=== PATIENT | male | born 1945 | race Caucasian/White ===

== ENCOUNTER → 2018-07-21 | Outpatient (CLI) | payer MEDICARE, OTHER ==
[2018-07-21 14:02] LABS: Source, Urine Voided
[2018-07-21 14:17] LABS: Bilirubin, Urine Neg (Neg); Blood, Urine Neg (Neg); Glucose Qualitative, Urine 4+ (Neg); Ketones, Urine 3+ (Neg); Leukocyte Esterase, Urine Neg (Neg); Nitrite, Urine Neg (Neg); Protein, Urine 2+ (Neg); Urobilinogen, Urine NORM (Normal)
[2018-07-21 14:32] LABS: Appearance, Urine Clear (Clear); Color, Urine Yellow (P-Yellow)
[2018-07-21 14:33] LABS: White Blood Cells, Urine 25-50 /hpf (0-5)
[2018-07-21 14:34] LABS: Bacteria Many /hpf; Red Blood Cells, Urine Not Seen /hpf (0-2); Squamous Epithelial Cells Not Seen /hpf (Few)
== END | disposition home or self-care (01) ==
LOC: LAB 14:00 → LAB SHORT 14:00
PROVIDERS: Nurse Practitioner Family
DX: N39.0 Urinary tract infection, site not specified (principal)
CPT/HCPCS: 81001; 87077; 87086; 87186

== ENCOUNTER → 2018-08-03 | Outpatient (CLI) | payer MEDICARE, OTHER ==
[2018-08-03 11:45] LABS: Source, Urine Clean Catch
[2018-08-03 11:54] LABS: Appearance, Urine Clear (Clear); Blood, Urine 1+ (Neg); Color, Urine Yellow (P-Yellow); Glucose Qualitative, Urine Neg (Neg); Ketones, Urine 1+ (Neg); Leukocyte Esterase, Urine 1+ (Neg); Nitrite, Urine Neg (Neg); Protein, Urine 2+ (Neg); Specific Gravity, Urine 1.025 (1.003-1.022); Urobilinogen, Urine NORM (Normal)
[2018-08-03 12:19] LABS: Bilirubin, Urine 1+ (Neg)
[2018-08-03 12:20] LABS: Bacteria Few /hpf; Red Blood Cells, Urine 0-2 /hpf (0-2); Squamous Epithelial Cells Few /hpf (Few); White Blood Cells, Urine 0-2 /hpf (0-5)
[2018-08-03 12:21] LABS: Calcium Oxalate Crystals Mod /hpf; Mucus Mod (0-Heavy)
== END | disposition home or self-care (01) ==
LOC: LAB 11:43 → LAB SHORT 11:43
PROVIDERS: Nurse Practitioner Family
DX: N39.0 Urinary tract infection, site not specified (principal)
CPT/HCPCS: 81001; 87086

== ENCOUNTER → 2018-08-20 | Outpatient (CLI) | payer MEDICARE, OTHER ==
[2018-08-20 13:02] LABS: Bilirubin, Urine Neg (Neg); Blood, Urine Neg (Neg); Glucose Qualitative, Urine Neg (Neg); Ketones, Urine 1+ (Neg); Leukocyte Esterase, Urine 1+ (Neg); Nitrite, Urine Neg (Neg); Protein, Urine 1+ (Neg); Urobilinogen, Urine NORM (Normal)
[2018-08-20 13:19] LABS: Appearance, Urine Clear (Clear); Color, Urine Yellow (P-Yellow)
[2018-08-20 13:22] LABS: Bacteria Not Seen /hpf; Calcium Oxalate Crystals Rare /hpf; Mucus Mod (0-Heavy); Red Blood Cells, Urine Not Seen /hpf (0-2); Squamous Epithelial Cells Rare /hpf (Few)
== END | disposition home or self-care (01) ==
LOC: LAB 12:31 → LAB SHORT 12:31
PROVIDERS: Nurse Practitioner Family
DX: N39.0 Urinary tract infection, site not specified (principal)
CPT/HCPCS: 81001; 87086

== ENCOUNTER → 2018-09-14 | Outpatient (CLI) | payer MEDICARE, OTHER ==
[2018-09-14 15:02] LABS: Bilirubin, Urine Neg (Neg); Blood, Urine Neg (Neg); Glucose Qualitative, Urine Neg (Neg); Ketones, Urine 1+ (Neg); Leukocyte Esterase, Urine 2+ (Neg); Nitrite, Urine Pos (Neg); Protein, Urine 1+ (Neg); Urobilinogen, Urine NORM (Normal)
[2018-09-14 15:26] LABS: Appearance, Urine Hazy (Clear); Color, Urine Yellow (P-Yellow)
[2018-09-14 15:28] LABS: Red Blood Cells, Urine Rare /hpf (0-2); Squamous Epithelial Cells Few /hpf (Few)
[2018-09-14 15:29] LABS: Amorphous Light (0-Heavy); Bacteria Rare /hpf; Calcium Oxalate Crystals Rare /hpf; Mucus Light (0-Heavy)
== END | disposition home or self-care (01) ==
LOC: LAB 14:07 → LAB SHORT 14:07
PROVIDERS: Nurse Practitioner Family
DX: N39.0 Urinary tract infection, site not specified (principal)
CPT/HCPCS: 81001; 87086

== ENCOUNTER → 2019-03-14 | Outpatient (CLI) | payer MEDICARE, OTHER ==
[2019-03-15 11:17] LABS: Source, Urine Clean Catch
[2019-03-15 11:38] LABS: Bilirubin, Urine Neg (Neg); Blood, Urine Neg (Neg); Glucose Qualitative, Urine Neg (Neg); Ketones, Urine Neg (Neg); Leukocyte Esterase, Urine Neg (Neg); Nitrite, Urine Neg (Neg); Protein, Urine Neg (Neg); Urobilinogen, Urine NORM (Normal); pH, Urine 6.5 (5.0-8.0)
[2019-03-15 11:51] LABS: Appearance, Urine Clear (Clear); Color, Urine Yellow (P-Yellow)
== END | disposition home or self-care (01) ==
LOC: LAB 19:30 → LAB SHORT 19:30
PROVIDERS: Nurse Practitioner Family
DX: N39.0 Urinary tract infection, site not specified (principal)
CPT/HCPCS: 81003

== ENCOUNTER → 2019-04-08 | Outpatient (CLI) | payer MEDICARE, OTHER ==
[2019-04-09 12:00] LABS: Source, Urine Clean Catch
[2019-04-09 15:31] LABS: Appearance, Urine Clear (Clear); Bilirubin, Urine Neg (Neg); Blood, Urine Neg (Neg); Color, Urine Yellow (P-Yellow); Glucose Qualitative, Urine Neg (Neg); Ketones, Urine Neg (Neg); Leukocyte Esterase, Urine Neg (Neg); Nitrite, Urine Neg (Neg); Protein, Urine Neg (Neg); Specific Gravity, Urine 1.015 (1.003-1.022); Urobilinogen, Urine NORM (Normal)
== END | disposition home or self-care (01) ==
LOC: OLS 21:00 → LAB SHORT 21:00
PROVIDERS: Nurse Practitioner Family
DX: N39.0 Urinary tract infection, site not specified (principal)
CPT/HCPCS: 81003

== ENCOUNTER 2020-12-30 06:51 | Inpatient (IN) | payer MEDICARE, OTHER ==
[~2020-12-30] VITALS: Ht 188 cm; Wt 81.7 kg
[2020-12-30 09:31] LABS: BASOPHILS ABSOLUTE AUTO 0.05 K/mm3 (0.00-0.23); BASOPHILS PERCENT AUTO 1 % (0-2); EOSINOPHILS PERCENT AUTO 1 % (0-6); Hematocrit 40.6 % (37.0-53.0); Hemoglobin 13.7 g/dL (13.5-17.5); IMMATURE GRAN ABSOLUTE AUTO 0.04 K/mm3 (0.00-0.10); IMMATURE GRAN PERCENT AUTO 0 % (0-1); LYMPHOCYTES ABSOLUTE AUTO 1.73 K/mm3 (0.84-5.20); LYMPHOCYTES PERCENT AUTO 16 % (21-46); MONOCYTES ABSOLUTE AUTO 0.66 K/mm3 (0.16-1.47); MONOCYTES PERCENT AUTO 6 % (4-13); Mean Corpuscular HGB 30.8 pg (26.0-34.0); Mean Corpuscular HGB Conc 33.7 g/dL (31.5-36.5); Mean Corpuscular Volume 91 fL (80-100); Mean Platelet Volume 10.1 fL (9.1-12.4); NEUTROPHILS ABSOLUTE AUTO 8.49 K/mm3 (1.96-9.15); NEUTROPHILS PERCENT AUTO 77 % (41-73); Platelet Count 219 K/mm3 (150-400); RDW Coefficient Variation 12.9 % (11.7-14.2); RDW Standard Deviation 42.5 fL (35.1-46.3); Red Blood Cell Count 4.45 M/mm3 (4.30-5.90); White Blood Cell Count 11.07 K/mm3 (4.00-11.30)
[2020-12-30 09:47] LABS: International Normalized Ratio 1.03; Prothrombin Time Results 11.1 Sec (9.7-11.5)
[2020-12-30 09:50] LABS: Alanine Aminotransfer (ALT/SGP 11 U/L (12-78); Albumin, Blood 3.4 g/dL (3.4-5.0); Alk Phos 88 U/L (50-136); Anion Gap 3 mmol/L (6-16); Aspartate Aminotrans (AST/SGOT 29 U/L (12-37); Bilirubin, Total 0.6 mg/dL (0.1-1.0); Blood Urea Nitrogen 24 mg/dL (8-24); Bun/Creatinine Ratio 21.1 (12.0-20.0); CO2, Blood 28 mmol/L (21-32); Calcium, Blood 8.8 mg/dL (8.5-10.1); Chloride, Blood 110 mmol/L (98-108); Creatinine, Blood 1.14 mg/dL (0.60-1.20); Globulin, Blood 3.4 g/dL (2.2-4.0); Glomerular Filtration Rate >60 (60-); Glucose, Blood 83 mg/dL (70-99); Potassium, Blood 4.3 mmol/L (3.5-5.5); Sodium, Blood 141 mmol/L (136-145); Total Protein, Blood 6.8 g/dL (6.4-8.2)
[2020-12-30 09:59] LABS: SARS-Cov-2 (COVID-19) PCR, MMC NEGATIVE (NEGATIVE)
--- NOTE | 2020-12-30 10:22 | NUR ---
PT ARRIVED TO THE ROOM AT APPROXIMATELY 1010. PT IS ALERT AND ORIENTED X 2-3. HE IS PLEASANT. SPEECH IS MILDLY SLURRED AND QUIET. PT IS SOMETIMES SLOW TO RESPOND. WILL CONTINUE TO MONITOR.
[2020-12-30] MEDS ORDERED: ASPI81CH PO (11:28)
[2020-12-30] MEDS ORDERED: ATEN25 PO (11:39)
[2020-12-30] MEDS ORDERED: THERA-D2000 UNIT PO (11:40)
[2020-12-30] MEDS ORDERED: VITAMIN B-1250 MCG PO (12:34)
[2020-12-30] MEDS ORDERED: MELA3 PO (12:35)
[2020-12-30] MEDS ORDERED: MIRT15ST PO (12:35)
[2020-12-30] MEDS ORDERED: DAILY-VITE1 EAC1 PO (12:36)
[2020-12-30] MEDS ORDERED: OMEP20ER PO (12:37)
[2020-12-30] MEDS ORDERED: PRAZ1 PO (12:38)
[2020-12-30] MEDS ORDERED: SENNA LAXATIVE8.6 MG PO (12:39)
[2020-12-30] MEDS ORDERED: SERT50 PO (12:40)
[2020-12-30] MEDS ORDERED: ZOCOR20 MG PO (12:42)
[2020-12-30] MEDS ORDERED: ZONI100 PO (12:43)
[2020-12-30] MEDS ORDERED: [UNRECOGNIZED DRUG - OTHER] PO (12:47)
[2020-12-30] MEDS ORDERED: GLYC2 PO (12:49)
[2020-12-30] MEDS ORDERED: Acetaminophen650 M1 PO (13:13)
--- NOTE | 2020-12-30 13:45 | NUR ---
Initial palliative care consult: Hernanedz is a 75 year old with a history of dementia, Parkinson's disease, HTN, hyperlipidemia, urinary incontinence. He lives at [facility]. He fell and fractured his hip. His Tracie is at the bedside during the conversation. Hernandez speaks with a soft voice, he drifts in and out of sleep during the conversation. Tracie reports that Hernandez has lived at [facility] for the past three years. He spends 99% of his time in a wheelchair, however occasionally he forget his limitations and attempts to walk. He has had several falls in the past. Today he fell and fractured a hip. Tracie's biggest concerns are for pain control, timely administration of Parkinson's medications and meeting with the ortho MD to discuss options for treatment. Tracie states pt will not ask for pain medications unless he is really painful. She asked that staff be proactive in making sure Hernandez's pain is managed. Spoke with Benito at [facility]. Benito reports Hernandez is wheelchair bound but is able to transfer with a 1 person assist. Occasionally Hernandez tries to walk and his "legs freeze up." Hernandez feeds himself a mechanical soft diet, uses straws and a raised plate. He speaks with a soft voice which is usually clear. He takes his medications crushed in applesauce. Hernandez requires full assistance for bathing, dressing and toileting. He sometimes alerts staff that he needs to use the restroom however incontinence of bowel and bladder are not unusual for him. [facility] staff sent pt's POLST for DNR, limited treatments to [facility]. Copy given to pt's bedside nurse. Bedside nurse updated on information for ADL needs retreived from [facility] staff. Tracie's concerns for care relayed to bedside nurse. Will await ortho consult to determine plan of care going forward. PC to remain available for symptom management and advanced care planning as needed.
--- NOTE | 2020-12-30 15:30 | NUR ---
AFIB EKG WAS DONE IN PREPARATION FOR SURGERY. EKG SHOWED AFIB WITH RVR AND RATE <120. DR. DUMAS NOTIFIED OF HEART RHYTHM. TELE MICKI. FLAVIA CONFIRMED THAT PT HAD HIS ATENONOL AND ALL AM MEDICATIONS. [facility] PT'S DECLINED THAT PT HAD A HX OF AFIB. PT DENIED CHEST PAIN AND SHORTNESS OF BREATH, VSS. PLAN TO CONTINUE TO MONITOR UNLESS HR INCREASES TO >[address] DUMAS REQUEST.
--- NOTE | 2020-12-30 20:24 | NUR ---
SHIFT SUMMARY SURGERY CANCELLED TODAY R/T AFIB WITH RVR. PLAN FOR ECHO TOMORROW. PT MAY HAVE SURGERY IF ABLE TO BE CLEARED AND STABLE. PT REMAINS IN AFIB PER ARCHITECTURAL DESIGNER AND HR HAS REMAINED <120. PAIN MANAGED WITH FENTANYL. PT APPEARS COMFORTABLE AT REST AND DENIES PAIN BUT IS UNABLE TO MOVE UNLESS PAIN MEDICATION IS PROVIDED. PT'S VISITED TODAY. VSS. REPORT GIVEN TO ANA SILVA.
[2020-12-31 04:54] LABS: BASOPHILS ABSOLUTE AUTO 0.04 K/mm3 (0.00-0.23); BASOPHILS PERCENT AUTO 0 % (0-2); EOSINOPHILS ABSOLUTE AUTO 0.09 K/mm3 (0.00-0.68); EOSINOPHILS PERCENT AUTO 1 % (0-6); IMMATURE GRAN ABSOLUTE AUTO 0.04 K/mm3 (0.00-0.10); IMMATURE GRAN PERCENT AUTO 0 % (0-1); LYMPHOCYTES ABSOLUTE AUTO 1.85 K/mm3 (0.84-5.20); LYMPHOCYTES PERCENT AUTO 18 % (21-46); MONOCYTES ABSOLUTE AUTO 1.05 K/mm3 (0.16-1.47); MONOCYTES PERCENT AUTO 10 % (4-13); Mean Corpuscular HGB 30.9 pg (26.0-34.0); Mean Corpuscular HGB Conc 33.3 g/dL (31.5-36.5); Mean Corpuscular Volume 93 fL (80-100); Mean Platelet Volume 10.1 fL (9.1-12.4); NEUTROPHILS ABSOLUTE AUTO 7.35 K/mm3 (1.96-9.15); NEUTROPHILS PERCENT AUTO 70 % (41-73); Platelet Count 191 K/mm3 (150-400); RDW Standard Deviation 43.8 fL (35.1-46.3); Red Blood Cell Count 3.88 M/mm3 (4.30-5.90); White Blood Cell Count 10.42 K/mm3 (4.00-11.30)
[2020-12-31 05:14] LABS: Anion Gap 5 mmol/L (6-16); Blood Urea Nitrogen 29 mg/dL (8-24); Bun/Creatinine Ratio 26.6 (12.0-20.0); CO2, Blood 27 mmol/L (21-32); Calcium, Blood 8.4 mg/dL (8.5-10.1); Chloride, Blood 106 mmol/L (98-108); Creatinine, Blood 1.09 mg/dL (0.60-1.20); Glomerular Filtration Rate >60 (60-); Glucose, Blood 103 mg/dL (70-99); Potassium, Blood 3.8 mmol/L (3.5-5.5); Sodium, Blood 138 mmol/L (136-145)
--- NOTE | 2020-12-31 05:26 | NUR ---
SUMMARY PT IS A&O TO HIMSELF, HE IS NOT ABLE TO COMMUNICATE HIS NEEDS. PAIN MEDICATION WITH IV FENTANYL(SEE EMAR). PT TOLERATED THIS WELL, CONT BIOX IN PLACE, SPO2 >95% ON RA, VSS, AFIB W/PVC'S THROUGH THE NIGHT. PT DENIED ANY CP/PRESSURE, HE ONLY C/O HIS RIGHT LEG. RIGHT LEG ELEVAED ON PILLOWS, CIRC WNL, ABLE TO WIGGLE TOES, ICE PACK PLACED. WCTM & REPORT TO DAY RN.
[2020-12-31] MEDS ORDERED: CARBLEV25 SL ×2 (11:48→11:59)
[2020-12-31] MEDS ORDERED: ALUM-MAG HYDROX30 ML PO (12:02)
[2020-12-31] MEDS ORDERED: BISM300CH PO (12:04)
[2020-12-31] MEDS ORDERED: Q-Tussin100 MG/5 M PO (12:06)
--- NOTE | 2020-12-31 18:43 | NUR ---
SHIFT SUMMARY PATIENT CONFUSED AT BASELINE. BEDREST THROUGHOUT SHIFT. WAITING FOR RIGHT HIP FX REPAIR WITH DR FLORES. NPO, IV FLUID RUNNING. MEDICATED FOR PAIN PER EMAR. PRESCOTT IN PLACE AND PATENT. TELE WITH AFIB AT 90S. ANXIOUS AT TIMES. SPOKE WITH PATIENT'S SPOUSE AND GAVE HER UPDATES. RIGHT LEG PROPPED WILL PILLOWS FOR COMFORT.
--- NOTE | 2020-12-31 19:15 | NUR ---
PT OUT OF ROOM TO OR AT THIS TIME
--- NOTE | 2020-12-31 23:00 | NUR ---
PT ARRIVED TO UNIT FROM ICU RECOVERY AT APPROX 2230. PT DROWSY, MINIMAL VERBAL RESPONSE. PT WILL OCC ATTEMPT TO SPEAK BUT SPEECH IS GARBLED AND INCOMPREHENSABLE. VS WNL. AQUACEL DRESSINGS TO RT HIP C/D/I. CAP REFILL <[address]. PT UNABLE TO RATE PAIN. NO GRIMACE NOTED. PT ABLE TO TAKE NIGHT TIME MEDS WHOLE WITH APPLE SAUCE.
--- NOTE | 2021-01-01 04:29 | NUR ---
SHIFT SUMMARY: PT POD#1 FOR RIGHT HIP RODDING. PT HAS BEEN STABLE SINCE ARRIVAL FROM ICU RECOVERY. VS WNL. O2 STABLE ON RA WITH BIOX IN PLACE. PT RESPONDS TO VERBAL STIMULI. OPENING EYES SPONTANEOUSLY. GARBLED SPEECH/DIFFICULT TO UNDERSTAND. PT UNABLE TO COMMUNICATE NEEDS. AQUACEL DRESSINGS ON RT HIP C/D/I. BLE'S ELEVATED ON PILLOWS. IVF INFUSING PER EMAR. PRESCOTT PATENT AND DRAINING. PT APPEARS TO BE RESTING MOST OF SHIFT.
--- NOTE | 2021-01-01 10:25 | NUR ---
01/01/21 1025 Dinah De La Cruz VERIFICATIONS: EDIT CHART.
--- NOTE | 2021-01-01 19:27 | NUR ---
SHIFT SUMMARY PATIENT POST OP DAY 1 FOR RIGHT HIP PINNING AND RODDING WITH DR FLORES. SLEPT THROUGH FIRST HALF OF SHIFT. WOKE UP TO TAKE PILLS AND LUNCH. 2 AQUACELS TO RIGHT HIP. SEEN BY PHYSICAL THERAPY AND DOESN'T QUALIFY FOR REHAB. PLAN IS TO DC BACK [facility] ONCE MEDICALLY STABLE.
--- NOTE | 2021-01-02 03:25 | NUR ---
BRADYCARDIA PER TELE REPORT, PATIENT WAS IN BRADYCARDIA W/ HR IN THE 40'S. PT APPEARS TO BE ASYMPTOMATIC, HAS GOOD COLOR, NO APPARENT DISTRESS, AND WAKES EASILY TO VERBAL STIMULI. WILL CTM.
--- NOTE | 2021-01-02 06:39 | NUR ---
SHIFT SUMMARY POD2 GAMMA RODDING, ALERT AND CONFUSED, NOT IMPULSIVE, BED ALARM ON FOR SAFETY, SPEECH MOSTLY GARBLED BUT CAN ANSWER YES/NO QUESTIONS, DOES PILL WELL W/ APPLE SAUCE, PAINFUL AT TIMES BUT UNABLE TO USE 0-10 SCALE SO USING FLACC/FACE SCALE. NO ACUTE EVENTS THIS SHIFT, CALL LIGHT IN REACH, WILL CTM AND REPORT TO DAY RN.
[2021-01-02 08:38] LABS: Hematocrit 27.8 % (37.0-53.0); Hemoglobin 9.5 g/dL (13.5-17.5); Mean Corpuscular HGB 31.7 pg (26.0-34.0); Mean Corpuscular HGB Conc 34.2 g/dL (31.5-36.5); Mean Corpuscular Volume 93 fL (80-100); Mean Platelet Volume 10.7 fL (9.1-12.4); Platelet Count 166 K/mm3 (150-400); RDW Coefficient Variation 13.2 % (11.7-14.2); RDW Standard Deviation 44.3 fL (35.1-46.3); White Blood Cell Count 10.55 K/mm3 (4.00-11.30)
[2021-01-02 08:53] LABS: Anion Gap 3 mmol/L (6-16); Blood Urea Nitrogen 23 mg/dL (8-24); Bun/Creatinine Ratio 24.4 (12.0-20.0); CO2, Blood 27 mmol/L (21-32); Calcium, Blood 8.4 mg/dL (8.5-10.1); Chloride, Blood 110 mmol/L (98-108); Creatinine, Blood 0.94 mg/dL (0.60-1.20); Glomerular Filtration Rate >60 (60-); Glucose, Blood 80 mg/dL (70-99); Sodium, Blood 140 mmol/L (136-145)
--- NOTE | 2021-01-02 11:59 | NUR ---
THIS NURSE JUST GAVE REPORT TO SHIRA WASHINGTON AT [facility]. UPDATED PADMINI ON HOW HE IS, PAIN MANAGEMENT, AND HOW HE TRANSFERS. AQUACELS WERE REPLACED AND ARE C/D/I. PATIENT IS TOLERATING PO INTAKE AND IS VOIDING. HE WILL BE DISCHARGING WITH [facility] WHEN THEY ARRIVE. IV WAS TAKEN OUT AND WAS WNL. GATHERING PERSONAL ITEMS NOW. HARD PERSCRIPTION IS IN HIS FOLDER FOR WHEN HE TRANSFERS. VS ARE WNL AND IS ON RA. PATIENT IS CURRENTLY LAYING IN BED WATCHING TV. CALL LIGHT IS WITHIN REACH. WILL CONTINUE TO MONITOR UNTIL [facility] CALENDERING MACHINE OPERATOR IS HERE.
--- NOTE | 2021-01-02 12:56 | NUR ---
PATIENT JUST LEFT WITH [employer] VIDEOGRAPHER AND VAN. HE HAS HIS ITEMS IN BAGS AND THE YELLOW FOLDER WITH PERSCRIPTION WELL OTHER INFORMATION/DRESSINGS. ALREADY GAVE REPORT TO PADMINI SILVA FROM [facility]. HIS DEPENDS AND DRESSINGS WERE CHANGED. IV WAS TAKEN OUT AND WAS WNL. HE WAS DRESSED AND PUT IN HIS OWN PERSONAL WHEELCHAIR. PATIENT WAS HAPPY TO BE GOING BACK TO HIS HOME.
== END 2021-01-02 12:55 | disposition home health service (06) | DRG 482 ==
LOC: ER 06:51 → SURS 09:23
PROVIDERS: Emergency Medicine; Orthopaedic Surgery; ADMIT Internal Medicine
PROC: 0QH634Z Insertion of Internal Fixation Device into Right Upper Femur, Percutaneous Approach (ICD-10-PCS; principal; 2020-12-31 17:45)
DX: S72.141A Displaced intertrochanteric fracture of right femur, initial encounter for closed fracture (principal); I48.91 Unspecified atrial fibrillation; G20 Parkinson's disease; Z20.822 Contact with and (suspected) exposure to COVID-19; F02.80 Dementia in other diseases classified elsewhere, unspecified severity, without behavioral disturbance, psychotic disturbance, mood disturbance, and anxiety; I10 Essential (primary) hypertension; E78.5 Hyperlipidemia, unspecified; R32 Unspecified urinary incontinence; R54 Age-related physical debility; Z66 Do not resuscitate; Z88.8 Allergy status to other drugs, medicaments and biological substances; Z79.899 Other long term (current) drug therapy; Z79.82 Long term (current) use of aspirin; W01.0XXA Fall on same level from slipping, tripping and stumbling without subsequent striking against object, initial encounter; Y92.099 Unspecified place in other non-institutional residence as the place of occurrence of the external cause
CPT/HCPCS: 36415; 51702; 73522; 80048; 80053; 85025; 85027; 85610; 85730; 93005; 93010; 93306; 94762; 96374-59; 97162; 97166; 97530; 99285-25; A9270; C1713; J0171; J0690; J1100; J1650; J2370; J2405; J2704; J3010; J7120; U0004